=== PATIENT | female | born 1950 | race Caucasian/White ===

== ENCOUNTER 2018-10-28 10:43 | Inpatient (IN) ==
[2018-10-28] MEDS ORDERED: Albuterol 2.5 MG/3 ML NEBULIZER IH PRN (11:01)
--- NOTE | 2018-10-28 16:07 | Pallative History & Physical ---
<No Mcneal B - Last Filed: 10/28/18 16:51> Date of Encounter: 10/28/18 Time of Encounter: 02:45 Assessment and Plan (1) Hospice care Current visit: Yes Status: Acute Patient currently admitted for respite care from home hospice. Plan to continue patient's out patient medications. Plan to start PRN CPAP as patient uses this at home. (2) COPD (chronic obstructive pulmonary disease) Current visit: No Status: Chronic Qualifiers: COPD type: unspecified COPD Qualified Code(s): J44.9 - Chronic obstructive pulmonary disease, unspecified (3) Dyspnea Current visit: No Status: Chronic Qualifiers: Dyspnea type: shortness of breath Qualified Code(s): R06.02 - Shortness of breath; R06.00 - Dyspnea, unspecified; R06.01 - Orthopnea Internal Medicine - H&P: HPI Admitted From: Home Plans for Post Hospital Care: Hospice - Home History of present illness: Ms. Aparicio is a 68 year old female with a past history of COPD hypertension and diabetes mellitus currently on home hospice since May for end stage COPD, being admitted today for respite care. Patient reports that she is aware that s he is able to make use of respite services once a month. She reports that she also knows that she will need as needed use of BIPAP for her dyspnea, but that she was currently comfortable using nasal cannula. Past Med Surg Social Fam HX - Past Medical History Medical history: COPD, diabetes, hyperlipidemia, hypertension Psychiatric history: anxiety - Past Surgical History Surgical History: cholecystectomy, hysterectomy - Social History Smoking Status: Former smoker Smokeless Tobacco Status: No Alcohol use: none Drug use: none - Family History Mother Adopted: No Family Member Ethnicity: Non- Living Status: Hx Family Cardiac Disorders: No Hx Family Respiratory Disorders: Yes (Lung CA) Hx Family Cancer: Yes (see above) Hx Family GI Disorders: No Hx Family Endocrine Disorder: No Hx Family Neuromuscular Disorders: No Hx Family Neurologic Disorders: No Hx Family HEENT Disorders: Yes (glasses) Hx Family Autoimmune Disorders: No Internal Medicine - H&P: Meds Albuterol Neb [Proventil Neb] 2.5 mg IH Q4H PRN 11/07/14 [History] Albuterol Sulfate [Albuterol Inhaler] 2 puff IH Q4HR PRN 11/07/14 [History] Citalopram [CeleXA] 40 mg PO DAILY 11/07/14 [History] Ropinirole [Requip] 0.25 mg PO HS 11/07/14 [History] Tiotropium [Spiriva] 18 mcg IH DAILY 11/07/14 [History] Atorvastatin [Lipitor] 40 mg PO QPM 01/06/16 [History] Budesonide/Formoterol 160/4.5 [Symbicort 160/4.5] 2 puff IH BIDR #1 inhaler 01/08/16 [Rx] Ferrous Sulfate [Iron] 325 mg PO DAILY 05/17/18 [History] Irbesartan/Hydrochlorothiazide [Avalide 150-12.5 mg Tablet] 1 each PO DAILY 05/17/18 [History] PredniSONE [Saadia] 5 mg PO DAILY 05/17/18 [History] Sennosides/Docusate Sodium [Senna Plus] 2 each PO BID #12 tablet 05/25/18 [Rx] Sennosides/Docusate Sodium [Senna Plus] 2 each PO BID #12 tablet 05/25/18 [Rx] Allergy/AdvReac Type Severity Reaction Status Date / Time bee stings Allergy Anaphylaxis Uncoded 10/01/16 15:01 - Constitutional Constitutional ROS PAL: fatigue Additional comments: good appetite - EENT Eyes: as per HPI - Cardiovascular Cardiovascular ROS: no chest pain, no pedal edema - Respiratory Respiratory: dyspnea - Gastrointestinal Gastrointestinal: no change in bowel habits, no change in stool character - Genitourinary Palliative ROS female: no urinary incontinence - Musculoskeletal Musculoskeletal ROS IM: muscle weakness - Integumentary ROS Integumentary: other Additional comments: patient reports some brusing on hands a right foot - Neurological Neurological ROS: weakness, no confusion, no dizziness Palliative Care-Exam - Constitutional Vitals: Temp Pulse BP 99.0 F 105 105/57 10/28/18 15:26 10/28/18 15:26 10/28/18 15:26 General appearance: Present: cooperative, no acute distress - Head Head Exam: Present: atraumatic, normocephalic - Eye Eye exam: Present: normal appearance - ENT ENT exam: Present: mucous membranes moist - Neck Neck exam: Present: full ROM - Respiratory Respiratory exam: Present: wheezes Additional comments: bilateral course breath sounds on expiration with end expiratory wheezing - Cardiovascular Cardiovascular exam: Present: RRR, +S1, +S2. Absent: systolic murmur - GI/Abdominal Exam GI/Abdominal exam: Present: normal bowel sounds. Absent: tenderness - Extremities Exam Extremities exam: Absent: pedal edema - Neurological Exam Neurological exam: Present: alert, oriented X3 - Skin Additional comments: bruising on dorsal side of right hand and on middle toe of right foot Palliative Quality Palliative Quality: Screen for Code Status: Yes, Screen for Goals of Care: Yes, Screen for Pain: Yes, Screen for Nausea/Vomitting: Yes Code Status: 10/28/18 11:01 Resuscitation Status: Active [RES] Routine Comment: Resuscitation Status: [id number] <Bella Mora - Last Filed: 10/28/18 19:12> Date of Encounter: 10/28/18 Internal Medicine - H&P: HPI History of present illness: Ms. Aparicio is a 68 year old female Palliative Care-Exam - Constitutional Vitals: Temp Pulse BP 99.0 F 105 105/57 10/28/18 15:26 10/28/18 15:26 10/28/18 15:26 Palliative Quality Code Status: 10/28/18 11:01 Resuscitation Status: Active [RES] Routine Comment: Resuscitation Status: [id number] - Attending Attestation I examined this patient and my medical decision-making was reviewed with the Resident Physician Dr Mcneal. I agree with the documented findings, disposition and treatment plan as described except to the extent set forth below. [place] hospice patient, admitted for respite. Pt was AAOx3, in no acute distress, using accessory muscles for breathing, but states to be feeling fine, just tired and sleepy. Pt states she was hoping to go to a long term were she would have more activity than in the hospital, however she hopes to rest well. All home medication restarted, plan is to return home on Wednesday.
[2018-10-28] MEDS: Morphine Sulfate Oral CONC 10 MG/0.5 ML ORAL.SYG SL PRN (16:22)
[2018-10-28] MEDS: *HR* LORazepam Oral Conc 2 MG/ML PO PRN ×2 (16:22→20:32)
[2018-10-28] MEDS: *HR* Acetylcysteine 20% 600 MG/3 ML ORAL SYRINGE PO SCH ×2 (17:28→20:33)
[2018-10-28] MEDS: Budesonide/Formoterol 160/4.5 1 PUFF INH IH SCH (20:09)
[2018-10-28] MEDS: Sennosides/Docusate Sodium TABLET PO SCH (20:27)
[2018-10-28] MEDS: Gabapentin 300 MG CAPSULE PO SCH (20:32)
[2018-10-29] MEDS: Tiotropium 18 MCG inhalation IH SCH (07:55)
[2018-10-29] MEDS: Budesonide/Formoterol 160/4.5 1 PUFF INH IH SCH ×2 (07:55→19:48)
[2018-10-29] MEDS: predniSONE 10 MG TABLET PO SCH (09:20)
[2018-10-29] MEDS: Sennosides/Docusate Sodium TABLET PO SCH ×2 (09:20→22:24)
[2018-10-29] MEDS: *HR* Acetylcysteine 20% 600 MG/3 ML ORAL SYRINGE PO SCH ×3 (09:20→20:17)
[2018-10-29] MEDS: Losartan/HCTZ 50-12.5 TABLET PO SCH (09:20)
--- NOTE | 2018-10-29 10:30 | Event Note ---
Date of Encounter: 10/29/18 Time of Encounter: 09:00 Patient is feeling at her baseline today. She would like to a=be allowed to rest in the morning, but get out of bed to chair in he afternoon. Nurse made aware. Continue respite care.
[2018-10-29] MEDS: Gabapentin 300 MG CAPSULE PO SCH (20:17)
[2018-10-29] MEDS: *HR* LORazepam Oral Conc 2 MG/ML PO PRN (20:17)
[2018-10-30] MEDS: Sennosides/Docusate Sodium TABLET PO SCH ×2 (07:26→21:57)
[2018-10-30] MEDS: Losartan/HCTZ 50-12.5 TABLET PO SCH (07:26)
[2018-10-30] MEDS: predniSONE 10 MG TABLET PO SCH (07:26)
[2018-10-30] MEDS: *HR* Acetylcysteine 20% 600 MG/3 ML ORAL SYRINGE PO SCH ×2 (07:26→15:22)
[2018-10-30] MEDS: *HR* LORazepam Oral Conc 2 MG/ML PO PRN ×2 (07:37→22:02)
[2018-10-30] MEDS: Tiotropium 18 MCG inhalation IH SCH (07:51)
[2018-10-30] MEDS: Budesonide/Formoterol 160/4.5 1 PUFF INH IH SCH ×2 (07:51→20:27)
--- NOTE | 2018-10-30 16:07 | Event Note ---
Date of Encounter: 10/30/18 Time of Encounter: 16:00 Patient sleeping quietly during my visit. I did not awaken. Did speak with daughter Sweta and she states that patient has been stable and comfortable. WIll visit her tomorrow.
[2018-10-30] MEDS: Gabapentin 300 MG CAPSULE PO SCH (21:57)
[2018-10-30] MEDS: Morphine Sulfate Oral CONC 10 MG/0.5 ML ORAL.SYG SL PRN (22:01)
[2018-10-31] MEDS: *HR* Acetylcysteine 20% 600 MG/3 ML ORAL SYRINGE PO SCH ×3 (07:17→14:09)
[2018-10-31] MEDS: predniSONE 10 MG TABLET PO SCH (08:03)
[2018-10-31] MEDS: Losartan/HCTZ 50-12.5 TABLET PO SCH (08:03)
[2018-10-31] MEDS: Sennosides/Docusate Sodium TABLET PO SCH ×2 (08:03→21:33)
[2018-10-31] MEDS: Tiotropium 18 MCG inhalation IH SCH (10:38)
[2018-10-31] MEDS: Budesonide/Formoterol 160/4.5 1 PUFF INH IH SCH ×2 (10:38→20:18)
--- NOTE | 2018-10-31 11:39 | Event Note ---
Date of Encounter: 10/31/18 Time of Encounter: 11:30 Patient awake and alert - up on BSC having BM. She has no complaints other than remaining here for respite. She is very anxious to go home tomorrow and wants to leave early in the am. Discussed that I would speak with [facility] in am and we would inform her in the morning.
[2018-10-31] MEDS: Gabapentin 300 MG CAPSULE PO SCH (21:33)
[2018-10-31] MEDS: Morphine Sulfate Oral CONC 10 MG/0.5 ML ORAL.SYG SL PRN (21:34)
[2018-10-31] MEDS: *HR* LORazepam Oral Conc 2 MG/ML PO PRN (21:34)
[2018-11-01] MEDS: Tiotropium 18 MCG inhalation IH SCH (07:20)
[2018-11-01] MEDS: Budesonide/Formoterol 160/4.5 1 PUFF INH IH SCH ×2 (07:20→20:14)
[2018-11-01] MEDS: *HR* Acetylcysteine 20% 600 MG/3 ML ORAL SYRINGE PO SCH ×4 (07:27→20:20)
[2018-11-01] MEDS: Sennosides/Docusate Sodium TABLET PO SCH ×2 (07:41→20:19)
[2018-11-01] MEDS: Losartan/HCTZ 50-12.5 TABLET PO SCH (07:41)
[2018-11-01] MEDS: predniSONE 10 MG TABLET PO SCH (07:44)
--- NOTE | 2018-11-01 09:07 | Event Note ---
<No Mcneal - Last Filed: 11/01/18 09:07> Date of Encounter: 11/01/18 Time of Encounter: 08:45 Patient was seen briefly today. She is alert and oriented. She still is very anxious to leave and go home. She was advised that the plan is for her to leave tomorrow as respite care is for 5 nights. Patient was agreeable for discharge tomorrow. <Bella Mora - Last Filed: 11/02/18 08:11> Date of Encounter: 11/02/18 I examined this patient and my medical decision-making was reviewed with the Resident Physician. I agree with the documented findings, disposition and treatment plan as described except to the extent set forth below.
[2018-11-01] MEDS ORDERED: Tdap (Boostrix) Vaccine 0.5 ML SYRINGE IM ONE (13:11)
[2018-11-01 18:44] VITALS: BP 130/81
[2018-11-01] MEDS: Gabapentin 300 MG CAPSULE PO SCH (20:20)
[2018-11-01] MEDS: *HR* LORazepam Oral Conc 2 MG/ML PO PRN (23:11)
[2018-11-02] MEDS ORDERED: Temazepam 15 MG CAPSULE PO ONE (00:32)
[2018-11-02] MEDS: Losartan/HCTZ 50-12.5 TABLET PO SCH (07:53)
[2018-11-02] MEDS: *HR* Acetylcysteine 20% 600 MG/3 ML ORAL SYRINGE PO SCH (07:53)
[2018-11-02] MEDS: predniSONE 10 MG TABLET PO SCH (07:53)
[2018-11-02] MEDS: Sennosides/Docusate Sodium TABLET PO SCH (07:53)
--- NOTE | 2018-11-02 09:49 | Discharge Summary ---
Date of Encounter: 11/02/18 Time of Encounter: 08:50 - Discharge Diagnosis (1) Dyspnea Priority: Secondary Status: Chronic Qualifiers: Dyspnea type: shortness of breath Qualified Code(s): R06.02 - Shortness of breath; R06.00 - Dyspnea, unspecified; R06.01 - Orthopnea (2) Hypertension Priority: Secondary Status: Chronic Qualifiers: Hypertension type: essential hypertension Qualified Code(s): I10 - Essential (primary) hypertension (3) Anxiety Priority: Secondary Status: Acute (4) COPD (chronic obstructive pulmonary disease) Priority: Primary Status: Chronic Qualifiers: COPD type: unspecified COPD Qualified Code(s): J44.9 - Chronic obstructive pulmonary disease, unspecified - Hospital Course Hospital course: Ms. Aparicio is a 68 year old female with a terminal diagnosis of COPD, hypertension and diabetes mellitus currently on home hospice since May, that was admitted for respite care. Patient had an uneventful stay, and remained in her usual state of health. Now she is stable for discharge home to resume her previous [place] hospice care. Of note, pt would like her next respite stay to be in a SNF setting were she can have more activities and meet people. - Time Spent with Patient Total time spent providing and/or coordinating discharge services: Greater than 30 minutes - Discharge Medications Prescriptions: Continued Atorvastatin [Lipitor] 40 mg PO QPM Budesonide/Formoterol 160/4.5 [Symbicort 160/4.5] 2 puff IH BIDR #1 inhaler Ferrous Sulfate [Iron] 325 mg PO DAILY Irbesartan/Hydrochlorothiazide [Avalide 150-12.5 mg Tablet] 1 tab PO DAILY predniSONE [PredniSONE] 10 mg PO DAILY Ipratropium/Albuterol Neb [Duoneb] 3 ml IH Q4HR PRN PRN Reason: Shortness Of Breath Gabapentin [Neurontin] 300 mg PO HS LORazepam Oral Conc [Ativan Oral Conc] 1 - 1.5 mg PO Q4H PRN PRN Reason: Anxiety Morphine Oral CONC [Roxanol] 5 mg PO Q1H PRN PRN Reason: PAIN/DYSPNEA Acetylcysteine [V-Abhfls-b-Cysteine] 600 mg PO TIDWM Tiotropium [Spiriva] 1 puff IH DAILY Citalopram Hydrobromide [Citalopram HBr] 40 mg PO DAILY Sennosides/Docusate Sodium [Senna Plus] 2 tab PO BID 5 Days #10 tablet Home Medications: Atorvastatin [Lipitor] 40 mg PO QPM 01/06/16 [History] Budesonide/Formoterol 160/4.5 [Symbicort 160/4.5] 2 puff IH BIDR #1 inhaler 01/08/16 [Rx] Ferrous Sulfate [Iron] 325 mg PO DAILY 05/17/18 [History] Irbesartan/Hydrochlorothiazide [Avalide 150-12.5 mg Tablet] 1 tab PO DAILY 05/17/18 [History] Acetylcysteine [F-Fhunzl-f-Cysteine] 600 mg PO TIDWM 10/28/18 [History] Citalopram Hydrobromide [Citalopram HBr] 40 mg PO DAILY 10/28/18 [History] Gabapentin [Neurontin] 300 mg PO HS 10/28/18 [History] Ipratropium/Albuterol Neb [Duoneb] 3 ml IH Q4HR PRN 10/28/18 [History] LORazepam Oral Conc [Ativan Oral Conc] 1 - 1.5 mg PO Q4H PRN 10/28/18 [History] Morphine Oral CONC [Roxanol] 5 mg PO Q1H PRN 10/28/18 [History] Tiotropium [Spiriva] 1 puff IH DAILY 10/28/18 [History] predniSONE [PredniSONE] 10 mg PO DAILY 10/28/18 [History] Sennosides/Docusate Sodium [Senna Plus] 2 tab PO BID 5 Days #10 tablet 11/02/18 [Rx] Allergies/Adverse Reactions: Allergy/AdvReac Type Severity Reaction Status Date / Time bee stings Allergy Anaphylaxis Uncoded 10/01/16 15:01 Internal Medicine - DS: Prov Date of admission: 10/28/18 14:50 Primary care physician: PCP NONE Admitting clinician: Bella Mora Attending physician on admission: Bella Mora Consults: 10/28/18 11:02 Consult to Palliative Care [CONS] Routine Comment: Consulting Provider: Palliative Care [place] Reason for Consult: respite Time Notified: 11:10 Call Completed: Yes 10/28/18 16:12 Consult to Respiratory Therapy [CONS] Routine Reason for Consult: cpap prn and hs Call Completed: Yes Attending physician on discharge: Bella Mora Discharging clinician: Bella Mora Anticipated date of discharge: 11/02/18 Internal Medicine - DS: Exam - Constitutional Vitals: Vital Signs Temp Pulse Resp BP Pulse Ox 11/02/18 07:51 98.0 F 80 18 130/81 97 11/01/18 20:15 18 96 11/01/18 18:42 98.1 F 78 17 130/81 95 Intake and Output 11/01/18 11/02/18 11/02/18 23:59 07:59 15:59 Intake Total 240 / 480 240 / 480 Output Total 150 / 150 Balance 90 / 330 240 / 330 Intake: Oral 240 / 480 240 / 480 Output: Urine 150 / 150 Other: Meal Breakfast Percent of Meal Consumed 100% # Voids 2 # Urine Diapers 1 # Bowel Movements 2 Weight 84.4 kg Patient Weight 11/02/18 23:59 Weight 84.4 kg General appearance: no acute distress, obese - Head Head exam: Present: atraumatic - Respiratory Respiratory exam: Present: CTAB, wheezes Additional comments: bilateral course breath sounds on expiration with end expiratory wheezing - Cardiovascular Cardiovascular exam: Present: RRR, +S1, +S2 - GI/Abdominal GI/Abdominal exam: Present: normal bowel sounds. Absent: tenderness - Extremities Exam Extremities exam: Present: full ROM. Absent: pedal edema - Neurological Exam Neurological exam: Present: alert, oriented X3, no focal deficits - Psychiatric Psychiatric exam: Present: normal affect, normal mood - Patient Status Disposition: Hospice - Home Condition: Good Functional capacity at discharge: wheelchair bound Overall status at discharge: patient is back to baseline - Discharge Instructions Instructions: Chronic Obstructive Pulmonary Disease (DC), Chronic Hypertension (DC), Anxiety (DC) Follow Up With: NONE,PCP [Primary Care Provider] - - Diet and Activity Activity: resume usual activities as tolerated
[2018-11-02] MEDS: Budesonide/Formoterol 160/4.5 1 PUFF INH IH SCH (10:15)
[2018-11-02] MEDS: Tiotropium 18 MCG inhalation IH SCH (10:16)
== END 2018-11-02 12:07 | disposition hospice, home (50) | DRG 951 ==
LOC: 2ANU 14:50
PROVIDERS: ADMIT Internal Medicine Hospice and Palliative Medicine; ATTEND Internal Medicine Hospice and Palliative Medicine